=== PATIENT | female | born 1950 | race Caucasian/White ===

== ENCOUNTER 2017-01-05 11:06 | Emergency (ER) | payer OTHER, MEDICAID ==
[~2017-01-05] VITALS: Ht 167.6 cm; Wt 80.0 kg
[~2017-01-05 11:06] MED LIST: ATEN1TAB74 PO; CHOL4POW3 PO; LACT PO; ONDA4; PRIN20TA2 PO
[2017-01-05 11:09] VITALS: BP 150/74; PULSE 57; RESP 16; TEMP 98.2; O2SAT 98
--- NOTE | 2017-01-05 11:24 | PD ---
HPI Chief Complaint: GI Complaint Time Seen by Provider: 11:24 Travel History International Travel<30 days: No Contact w/Intl Traveler<30days: No Traveled to known affect area: No History of Present Illness HPI 66-year-old female presents to emergency Department with one-day history of nausea and diarrhea and belly pain. Patient has type 2 diabetes, and is legally blind. Patient states nausea, abdominal pain, and diarrhea. Patient denies upper respiratory infection symptoms, cough, or chest pain. Patient denies history of diverticulitis in the past. Patient denies vaginal symptoms or urinary symptoms. Patient did not check her blood sugar this morning. She states she did not take her diabetic medications as she did not eat this morning. She is allergic to adhesives, cranberry, Demerol, grapefruit , and iodinated contrast media. PFSH Past Medical History Hx Anticoagulant Therapy: No Arthritis: Yes (OSTEOARTHRITIS IN LEGS, FEET AND BACK) Asthma: Yes Autoimmune Disease: No Blood Disorders: No Anxiety: No Depression: No Heart Rhythm Problems: No Cancer: No Cardiovascular Problems: Yes High Cholesterol: No Chemotherapy: No Chest Pain: No Congestive Heart Failure: No COPD: No Cerebrovascular Accident: No Diabetes: Yes Diminished Hearing: No Endocrine: No Gastrointestinal Disorders: Yes (GALL BLADDER DISEASE 2004) GERD: No Glaucoma: No Genitourinary: No Headaches: No Hepatitis: No Hiatal Hernia: No Hypertension: Yes Immune Disorder: No Kidney Stones: No Musculoskeletal: Yes (OSTEOPENIA ) Neurologic: Yes Psychiatric: No Reproductive: No Respiratory: Yes Immunizations Current: Yes Migraines: No Myocardial Infarction: No Radiation Therapy: No Renal Failure: No Seizures: No Sickle Cell Disease: No Sleep Apnea: Yes Thyroid Disease: No Ulcer: No ?: Not Past Surgical History Abdominal Surgery: Yes (PARTIAL COLECTOMY) AICD: No Appendectomy: No Arteriovenous Shunt: No Cardiac Surgery: No Cholecystectomy: Yes Ear Surgery: No Endocrine Surgery: No Eye Surgery: No Genitourinary Surgery: Yes (RECTOCELE REPAIR) Gynecologic Surgery: Yes (1975 TUBAL LIGATION;04/20 HYSTERECTOMY) Hysterectomy: Yes Insulin Pump: No Joint Replacement: No Oral Surgery: No Pacemaker: No Thoracic Surgery: No Tonsillectomy: Yes Other Surgery: Yes (RECTOCELE REPAIR) Social History Alcohol Use: No Tobacco Use: No Substance Use: No Allergies-Medications (Allergen,Severity, Reaction): Coded Allergies: Adhesives (Verified Allergy, Severe, Rash, 01/05/17) Cranberry (Verified Allergy, Severe, Rash, 01/05/17) Demerol (Verified Allergy, Severe, Hives, 01/05/17) Iodinated Contrast Media (Verified Allergy, Severe, sob, 01/05/17) Grapefruit (Verified Adverse Reaction, Intermediate, Diarrhea, 01/05/17) Reported Meds & Prescriptions Reported Meds & Active Scripts Active Zofran Odt (Ondansetron Odt) 4 Mg Tab 4 Mg SL Q6HR PRN Acetaminophen Extra Strength (Acetaminophen) 500 Mg Cap 1,000 Mg PO Q6H PRN Reported Oscal 500/200 D-3 (Calcium Carbonate-Vitamin D) 500-200 Mg-Unit Tab 1 Tab PO BID Atenolol 100 Mg Tab 100 Mg PO BID Lisinopril 40 Mg Tab 40 Mg PO DAILY Glipizide 5 Mg Tab 2.5 Mg PO DAILY Take 30 minutes before a meal Naproxen 250 Mg Tab 275 Mg PO BID Lovastatin 40 Mg Tab 40 Mg PO DAILY Omeprazole 20 Mg Tab 20 Mg PO DAILY Multi Adult Gummies (Multiple Vitamins W/ Minerals) 1 Chw Chw 1 Gum PO DAILY Breo Ellipta Inh (Fluticasone/Vilanterol) 100-25 Mcg/Act Inh 1 Puff INH DAILY Use daily at the same time. Amoxicillin 500 Mg Cap 500 Mg PO BID 7 Days Review of Systems Except as stated in HPI: all other systems reviewed are Neg General / Constitutional: Positive: Chills, No: Fever Eyes: No: Visual changes HENT: No: Headaches Cardiovascular: No: Chest Pain or Discomfort Respiratory: No: Shortness of Breath Gastrointestinal: Positive: Nausea, Diarrhea, Abdominal Pain, No: Vomiting, Dysphagia, Loss of Appetite Genitourinary: No: Urgency, Frequency, Dysuria Musculoskeletal: No: Pain Skin: No Rash Neurologic: No: Weakness Psychiatric: No: Depression Endocrine: No: Polydipsia Hematologic/Lymphatic: No: Easy Bruising Physical Exam Narrative GENERAL: Patient appears in mild distress. SKIN: Warm and dry. Normal color. Normal turgor. HEAD: Atraumatic. Normocephalic. EYES: Patient has bilateral corneal clouding. No scleral icterus. No injection or drainage. ENT: No nasal bleeding or discharge. Mucous membranes pink and moist. Pharynx is clear. NECK: Trachea midline. Airway is patent. Pharynx is clear. CARDIOVASCULAR: Regular rate and rhythm. RESPIRATORY: No accessory muscle use. Clear to auscultation. Breath sounds equal bilaterally. GASTROINTESTINAL: Abdomen soft, mild generalized abdominal tenderness, nondistended. No point tenderness or guarding. Hepatic and splenic margins not palpable. No CVA tenderness MUSCULOSKELETAL: Extremities without clubbing, cyanosis, or edema. No obvious deformities. NEUROLOGICAL: Awake and alert. No obvious cranial nerve deficits. Motor grossly within normal limits. Five out of 5 muscle strength in the arms and legs. Normal speech. PSYCHIATRIC: Appropriate mood and affect; insight and judgment normal. Data Data Last Documented VS Vital Signs Date Time Temp Pulse Resp B/P Pulse Ox O2 Delivery O2 Flow Rate FiO2 01/05/17 12:39 17 01/05/17 11:37 97 01/05/17 11:09 98.2 57 150/74 Orders Complete Blood Count With Diff (01/05/17 11:27) Comprehensive Metabolic Panel (01/05/17 11:27) Lipase (01/05/17 11:27) Lactic Acid (01/05/17 11:27) Prothrombin Time / Inr (Pt) (01/05/17 11:27) Act Partial Throm Time (Ptt) (01/05/17 11:27) Urinalysis - C+S If Indicated (01/05/17 11:27) Iv Access Insert/Monitor (01/05/17 11:27) Ecg Monitoring (01/05/17 11:27) Oximetry (01/05/17 11:27) NPO (01/05/17 11:27) Ondansetron Inj (Zofran Inj) (01/05/17 11:30) Sodium Chlor 0.9% 1000 Ml Inj (Ns 1000 M (01/05/17 11:27) Sodium Chloride 0.9% Flush (Ns Flush) (01/05/17 11:30) Ketorolac Inj (Toradol Inj) (01/05/17 11:30) Oral Contrast - Adult (01/05/17 11:33) Diatrizoate Liq ( Gastrojoanne Liq) (01/05/17 11:38) Ct Abd/Pel W/O Iv Contrast (01/05/17 11:44) Cath For Specimen (01/05/17 13:28) Labs Laboratory Tests Test 01/05/17 01/05/17 01/05/17 11:45 12:30 13:40 Lactic Acid Level 0.9 mmol/L White Blood Count 7.5 TH/MM3 Red Blood Count 4.70 MIL/MM3 Hemoglobin 12.9 GM/DL Hematocrit 38.4 % Mean Corpuscular Volume 81.8 FL Mean Corpuscular Hemoglobin 27.4 PG Mean Corpuscular Hemoglobin 33.5 % Concent Red Cell Distribution Width 14.0 % Platelet Count 187 TH/MM3 Mean Platelet Volume 8.5 FL Neutrophils (%) (Auto) 57.3 % Lymphocytes (%) (Auto) 26.3 % Monocytes (%) (Auto) 8.4 % Eosinophils (%) (Auto) 6.6 % Basophils (%) (Auto) 1.4 % Neutrophils # (Auto) 4.3 TH/MM3 Lymphocytes # (Auto) 2.0 TH/MM3 Monocytes # (Auto) 0.6 TH/MM3 Eosinophils # (Auto) 0.5 TH/MM3 Basophils # (Auto) 0.1 TH/MM3 CBC Comment DIFF FINAL Differential Comment Prothrombin Time 11.7 SEC Prothromb Time International 1.1 RATIO Ratio Activated Partial 28.8 SEC Thromboplast Time Sodium Level 142 MEQ/L Potassium Level 3.8 MEQ/L Chloride Level 107 MEQ/L Carbon Dioxide Level 29.2 MEQ/L Anion Gap 6 MEQ/L Blood Urea Nitrogen 23 MG/DL Creatinine 0.88 MG/DL Estimat Glomerular Filtration 65 ML/MIN Rate Random Glucose 93 MG/DL Calcium Level 8.6 MG/DL Total Bilirubin 0.6 MG/DL Aspartate Amino Transf 18 U/L (AST/SGOT) Alanine Aminotransferase 18 U/L (ALT/SGPT) Alkaline Phosphatase 52 U/L Total Protein 5.9 GM/DL Albumin 3.6 GM/DL Lipase 138 U/L Urine Color STRAW Urine Turbidity CLEAR Urine pH 5.5 Urine Specific [place] 1.003 Urine Protein NEG mg/dL Urine Glucose (UA) NEG mg/dL Urine Ketones NEG mg/dL Urine Occult Blood NEG Urine Nitrite NEG Urine Bilirubin NEG Urine Urobilinogen LESS THAN 2.0 MG/DL Urine Leukocyte Esterase TRACE Urine WBC 1 /hpf Urine Transitional Epithelial <1 /hpf Cells Microscopic Urinalysis Comment CULT NOT INDICATED MDM Medical Decision Making Medical Screen Exam Complete: Yes Emergency Medical Condition: Yes Differential Diagnosis Nausea. Diarrhea. Abdominal pain. Gastroenteritis. Urinary tract infection. Gastroenteritis. Narrative Course Patient is medically stable at time of exam. Labs ordered including CBC, CMP, lipase, lactic acid, urinalysis. IV access is obtained patient is given 4 mg Zofran IV as well as 30 mg Toradol IV. Abdominal CT is ordered without IV or oral contrast due to the patient's allergies. CBC is unremarkable. Lactic acid is 0.9. CMP and lipase are normal. Abdominal CT is unremarkable for acute process per radiologist. Patient is discussed, reviewed, and seen by Dr. Matute. Urinalysis is negative as well. Patient was discharged home with acetaminophen 500 mg 2 every 6 hours when necessary pain. Patient also given Zofran ODT 1 tab every 6 hours when necessary nausea. Patient is to rest and push fluids and follow-up with her primary care physician as discussed. Patient can return the emergency department if worsening symptoms develop such as fever, increasing pain, or worsening diarrhea. Diagnosis Primary Impression: Gastroenteritis Additional Impressions: Acute diarrhea Abdominal pain Qualified Code: R10.84 - Generalized abdominal pain Referrals: Primary Care Physician Patient Instructions: Acute Diarrhea (ED), General Instructions Additional Instructions: Patient was discharged home with acetaminophen 500 mg 2 every 6 hours when necessary pain. Patient also given Zofran ODT 1 tab every 6 hours when necessary nausea. Patient is to rest and push fluids and follow-up with her primary care physician as discussed. Patient can return the emergency department if worsening symptoms develop such as fever, increasing pain, or worsening diarrhea. Scripts Ondansetron Odt (Zofran Odt)4 Mg Tab4 Mg SL Q6HR PRN (Nausea/Vomiting) #15 TAB Prov:Surekha Matute MD 01/05/17 Acetaminophen (Acetaminophen Extra Strength)500 Mg Cap1,000 Mg PO Q6H PRN (PAIN SCALE 4 TO 10) #60 CAP Ref 1 Prov:Surekha Matute MD 01/05/17 Disposition: DISCHARGE HOME Condition: Stable Isaac Alexander Jan 05, 2017 11:24
[2017-01-05] MEDS ORDERED: SODIUM CHLOR 0.9% 1000 ML INJ 1,000 ML IV SCH (11:27)
[2017-01-05] MEDS ORDERED: SODIUM CHLORIDE 0.9% FLUSH 10 ML FLUSH IV FLUSH PRN (11:30)
[2017-01-05] MEDS ORDERED: KETOROLAC TROMETHAMINE 30 MG/ML (IVP) VIAL IVP ONE (11:30)
[2017-01-05] MEDS ORDERED: ONDANSETRON HCL 4 MG/2 ML VIAL IVP ONE (11:30)
[2017-01-05] MEDS ORDERED: LOVA40TA PO (11:31)
[2017-01-05] MEDS ORDERED: MULT1CHW33 PO (11:31)
[2017-01-05] MEDS ORDERED: OMEP20TA PO (11:31)
[2017-01-05] MEDS ORDERED: GLIP5TAB8 PO (11:31)
[2017-01-05] MEDS ORDERED: FLUT1INH INH (11:31)
[2017-01-05] MEDS ORDERED: LISI40TA PO (11:31)
[2017-01-05] MEDS ORDERED: NAPR250T PO (11:31)
[2017-01-05] MEDS ORDERED: AMOX500C PO (11:31)
[2017-01-05] MEDS ORDERED: ATEN100T PO (11:32)
[2017-01-05] MEDS ORDERED: OSCA200T PO (11:32)
[2017-01-05 11:37] VITALS: RESP 16; O2SAT 97
[2017-01-05] MEDS ORDERED: DIATRIZOATE MEGLUM/DIATRIZOATE SOD 9 ML CUP ONE (11:38)
[2017-01-05 12:39] VITALS: RESP 17
[2017-01-05 12:56] LABS: AUTOMATED NEUTROPHIL # 4.3 TH/MM3 (1.8-7.7); BASOPHIL # 0.1 TH/MM3 (0-0.2); BASOPHIL % 1.4 % (0.0-2.0); EOSINOPHIL # 0.5 TH/MM3 (0-0.4); EOSINOPHIL % 6.6 % (0.0-4.0); HEMATOCRIT 38.4 % (35.0-46.0); HEMO FLAGS DIFF FINAL; LYMPH % 26.3 % (9.0-44.0); MEAN CELL VOLUME 81.8 FL (80.0-100.0); MEAN CORPUSCULAR HEMOGLOBIN 27.4 PG (27.0-34.0); MEAN CORPUSCULAR HGB CONC 33.5 % (32.0-36.0); MONO % 8.4 % (0.0-8.0); NEUT % 57.3 % (16.0-70.0); PLATELET COUNT 187 TH/MM3 (150-450); WHITE BLOOD COUNT 7.5 TH/MM3 (4.0-11.0)
--- NOTE | 2017-01-05 12:57 | RADRPT ---
EXAM DATE/TIME: 01/05/2017 12:02 [facility] COMPARISON: CT ABDOMEN & PELVIS W/O CONTRAST, April 28, 2016, 0:07. INDICATIONS : Diffuse abdominal pain, nausea and vomiting. ORAL CONTRAST: No oral contrast ingested. RADIATION DOSE: 13.61 CTDIvol (mGy) MEDICAL HISTORY : Hypertension. Diabetes mellitus type 2. SURGICAL HISTORY : Hysterectomy. ENCOUNTER: Initial ACUITY: 1 day PAIN SCALE: 4/10 LOCATION: abdomen. TECHNIQUE: Volumetric scanning of the abdomen and pelvis was performed. Using automated exposure control and ad justment of the mA and/or kV according to patient size, radiation dose was kept as low as reasonably achievable to obtain optimal diagnostic quality images. FINDINGS: The limited portion of the lung base visualized is clear. The examination demonstrates a 1.1 cm low-attenuation lesion in the right lobe of the liver this is u nchanged from previous dated 04/28/16. The spleen, pancreas, adrenal glands and right kidney are unremarkable in appearance. There is some s ubtle inflammatory change around the left renal pelvis. The patient's renal stent has been removed. T here is no hydronephrosis. There is no free intraperitoneal air. No free intraperitoneal fluid is present. There is no retroperi toneal lymphadenopathy. The visualized loops of small large bowel are normal in caliber. There is no free fluid within the pelvis. No iliac or inguinal adenopathy is present. There is a surg ical anastomosis in the distal sigmoid colon. The contours of the bladder are unremarkable. The visualized bony structures demonstrate mild degenerative changes but are otherwise intact. CONCLUSION: 1. Stable 1.1 cm low-attenuation lesion in the liver probably representing a cyst. 2. Interval removal of the patient's left ureteral stent. 3. No definite abnormality to explain the patient's abdominal pain and vomiting are identified. Steve Reyes MD on January 05, 2017 at 12:52 Board Certified Radiologist. This report was verified electronically.
[2017-01-05 13:04] LABS: APTT (PATIENT) 28.8 SEC (24.3-30.1); INTERNATIONAL NORMALIZED RATIO 1.1 RATIO; PROTHROMBIN TIME - PATIENT 11.7 SEC (9.8-11.6)
[2017-01-05 13:16] LABS: ALT (GPT) 18 U/L (10-53); ANION GAP 6 MEQ/L (5-15); AST (GOT) 18 U/L (15-37); BICARBONATE 29.2 MEQ/L (21.0-32.0); BLOOD UREA NITROGEN 23 MG/DL (7-18); CHLORIDE 107 MEQ/L (98-107); GLOMERULAR FILTRATION RATE 65 ML/MIN (>89); POTASSIUM 3.8 MEQ/L (3.5-5.1); SODIUM (NA) 142 MEQ/L (136-145)
[2017-01-05 13:19] LABS: ALKALINE PHOSPHATASE 52 U/L (45-117); TOTAL BILIRUBIN ADULT 0.6 MG/DL (0.2-1.0)
[2017-01-05] MEDS ORDERED: ZOFR4TAB3 SL (13:40)
[2017-01-05] MEDS ORDERED: EXTR500C PO (13:40)
[2017-01-05 14:06] LABS: BLOOD, URINE NEG (NEG); COMMENT (UR) CULT NOT INDICATED; CULTURE IF INDICATED CULT NOT INDICATED; GLUCOSE,URINE NEG (NEG); KETONE, URINE NEG (NEG); NITRITE,URINE NEG (NEG); PH, URINE 5.5 (5.0-8.5); TRANSITIONAL EPI CELLS, URINE <1 /hpf; URINE COLOR STRAW (YELLW/STRAW)
--- NOTE | 2017-01-05 14:16 | PD ---
Data Data Last Documented VS Vital Signs Date Time Temp Pulse Resp B/P Pulse Ox O2 Delivery O2 Flow Rate FiO2 01/05/17 12:39 17 01/05/17 11:37 97 01/05/17 11:09 98.2 57 150/74 Orders Complete Blood Count With Diff (01/05/17 11:27) Comprehensive Metabolic Panel (01/05/17 11:27) Lipase (01/05/17 11:27) Lactic Acid (01/05/17 11:27) Prothrombin Time / Inr (Pt) (01/05/17 11:27) Act Partial Throm Time (Ptt) (01/05/17 11:27) Urinalysis - C+S If Indicated (01/05/17 11:27) Iv Access Insert/Monitor (01/05/17 11:27) Ecg Monitoring (01/05/17 11:27) Oximetry (01/05/17 11:27) NPO (01/05/17 11:27) Ondansetron Inj (Zofran Inj) (01/05/17 11:30) Sodium Chlor 0.9% 1000 Ml Inj (Ns 1000 M (01/05/17 11:27) Sodium Chloride 0.9% Flush (Ns Flush) (01/05/17 11:30) Ketorolac Inj (Toradol Inj) (01/05/17 11:30) Oral Contrast - Adult (01/05/17 11:33) Diatrizoate Liq ( Gastrojoanne Liq) (01/05/17 11:38) Ct Abd/Pel W/O Iv Contrast (01/05/17 11:44) Cath For Specimen (01/05/17 13:28) Labs Laboratory Tests Test 01/05/17 01/05/17 01/05/17 11:45 12:30 13:40 Lactic Acid Level 0.9 mmol/L White Blood Count 7.5 TH/MM3 Red Blood Count 4.70 MIL/MM3 Hemoglobin 12.9 GM/DL Hematocrit 38.4 % Mean Corpuscular Volume 81.8 FL Mean Corpuscular Hemoglobin 27.4 PG Mean Corpuscular Hemoglobin 33.5 % Concent Red Cell Distribution Width 14.0 % Platelet Count 187 TH/MM3 Mean Platelet Volume 8.5 FL Neutrophils (%) (Auto) 57.3 % Lymphocytes (%) (Auto) 26.3 % Monocytes (%) (Auto) 8.4 % Eosinophils (%) (Auto) 6.6 % Basophils (%) (Auto) 1.4 % Neutrophils # (Auto) 4.3 TH/MM3 Lymphocytes # (Auto) 2.0 TH/MM3 Monocytes # (Auto) 0.6 TH/MM3 Eosinophils # (Auto) 0.5 TH/MM3 Basophils # (Auto) 0.1 TH/MM3 CBC Comment DIFF FINAL Differential Comment Prothrombin Time 11.7 SEC Prothromb Time International 1.1 RATIO Ratio Activated Partial 28.8 SEC Thromboplast Time Sodium Level 142 MEQ/L Potassium Level 3.8 MEQ/L Chloride Level 107 MEQ/L Carbon Dioxide Level 29.2 MEQ/L Anion Gap 6 MEQ/L Blood Urea Nitrogen 23 MG/DL Creatinine 0.88 MG/DL Estimat Glomerular Filtration 65 ML/MIN Rate Random Glucose 93 MG/DL Calcium Level 8.6 MG/DL Total Bilirubin 0.6 MG/DL Aspartate Amino Transf 18 U/L (AST/SGOT) Alanine Aminotransferase 18 U/L (ALT/SGPT) Alkaline Phosphatase 52 U/L Total Protein 5.9 GM/DL Albumin 3.6 GM/DL Lipase 138 U/L Urine Color STRAW Urine Turbidity CLEAR Urine pH 5.5 Urine Specific [place] 1.003 Urine Protein NEG mg/dL Urine Glucose (UA) NEG mg/dL Urine Ketones NEG mg/dL Urine Occult Blood NEG Urine Nitrite NEG Urine Bilirubin NEG Urine Urobilinogen LESS THAN 2.0 MG/DL Urine Leukocyte Esterase TRACE Urine WBC 1 /hpf Urine Transitional Epithelial <1 /hpf Cells Microscopic Urinalysis Comment CULT NOT INDICATED MDM Supervised Visit with CHRISTIANO: Yes Narrative Course The history, exam, and medical decision-making in the associated midlevel provider note were completed with my assistance. I reviewed and agree with the findings presented. I attest that I had a [id number] encounter with the patient on the same day, and personally performed and documented my assessment and findings in the medical record. *My assessment and Findings: This is a 66-year-old female who presents to the emergency department with abdominal discomfort, loose stools and malaise. She is placed on a monitor and an IV was established. Labs were obtained which were all reassuring. CT abdomen and pelvis is unremarkable. Urinalysis is negative for infection. She says she feels better and wants to eat. Patient will be discharged home. Diagnosis Primary Impression: Gastroenteritis Additional Impressions: Acute diarrhea Abdominal pain Qualified Code: R10.84 - Generalized abdominal pain Referrals: Primary Care Physician Patient Instructions: General Instructions, Acute Diarrhea (ED) Additional Instruction: Patient was discharged home with acetaminophen 500 mg 2 every 6 hours when necessary pain. Patient also given Zofran ODT 1 tab every 6 hours when necessary nausea. Patient is to rest and push fluids and follow-up with her primary care physician as discussed. Patient can return the emergency department if worsening symptoms develop such as fever, increasing pain, or worsening diarrhea. Scripts Ondansetron Odt (Zofran Odt)4 Mg Tab4 Mg SL Q6HR PRN (Nausea/Vomiting) #15 TAB Prov:Surekha Matute MD 01/05/17 Acetaminophen (Acetaminophen Extra Strength)500 Mg Cap1,000 Mg PO Q6H PRN (PAIN SCALE 4 TO 10) #60 CAP Ref 1 Prov:Surekha Matute MD 01/05/17 Disposition: 01 DISCHARGE HOME Condition: Stable Surekha Matute MD Jan 05, 2017 14:16
[2017-01-05 14:41] VITALS: BP 130/77; TEMP 97.8
== END 2017-01-05 14:41 | disposition home or self-care (01) ==
LOC: NEPC 11:06
DX: K52.9 Noninfective gastroenteritis and colitis, unspecified (principal); R19.7 Diarrhea, unspecified; I10 Essential (primary) hypertension; E11.9 Type 2 diabetes mellitus without complications; Z79.4 Long term (current) use of insulin
CPT/HCPCS: 74176; 80053; 81001; 83605; 83690; 85025; 85610; 85730; 96361; 96374; 96375; 99284; J1885; J2405; J7030; P9612; Q9963

== ENCOUNTER 2017-05-09 20:13 | Emergency (ER) | payer MEDICAID, OTHER ==
[~2017-05-09 20:13] MED LIST changes: +AMOX500C PO; +ATEN100T PO; -ATEN1TAB74 PO; -CHOL4POW3 PO; +EXTR500C PO; +FLUT1INH INH; +GLIP5TAB8 PO; -LACT PO; +LISI40TA PO; +LOVA40TA PO; +MULT1CHW33 PO; +NAPR250T PO; +OMEP20TA PO; -ONDA4; +OSCA200T PO; -PRIN20TA2 PO; +ZOFR4TAB3 SL
[2017-05-09] MEDS ORDERED: SODIUM CHLOR 0.9% 1000 ML INJ 1,000 ML IV SCH (20:25)
--- NOTE | 2017-05-09 20:29 | PD ---
HPI Chief Complaint: abdominal pain Time Seen by Provider: 20:20 Travel History International Travel<30 days: No Contact w/Intl Traveler<30days: No Traveled to known affect area: No History of Present Illness HPI 67-year-old female presents EMS for evaluation of abdominal pain, nausea, vomiting, diarrhea. Symptoms started this evening at 6 PM. She reports 3 episodes of diarrhea, 3 episodes of vomiting. The pain is a sharp pain in the lower quadrants of the abdomen which is constant. Per chart review she has a history of cholecystectomy, partial colectomy, hysterectomy. She reports that her is having similar but less severe symptoms. Denies any recent dietary changes, recent travel, recent antibiotic use, dysuria, flank pain, fevers or chills. No other complaints. PFSH Past Medical History Hx Anticoagulant Therapy: No Arthritis: Yes (OSTEOARTHRITIS IN LEGS, FEET AND BACK) Asthma: Yes Autoimmune Disease: No Blood Disorders: No Anxiety: No Depression: No Heart Rhythm Problems: No Cancer: No Cardiovascular Problems: Yes High Cholesterol: No Chemotherapy: No Chest Pain: No Congestive Heart Failure: No COPD: No Cerebrovascular Accident: No Diabetes: Yes Diminished Hearing: No Endocrine: No Gastrointestinal Disorders: Yes (GALL BLADDER DISEASE 2004) GERD: No Glaucoma: No Genitourinary: No Headaches: No Hepatitis: No Hiatal Hernia: No Hypertension: Yes Immune Disorder: No Kidney Stones: No Musculoskeletal: Yes (OSTEOPENIA ) Neurologic: Yes Psychiatric: No Reproductive: No Respiratory: Yes Immunizations Current: Yes Migraines: No Myocardial Infarction: No Radiation Therapy: No Renal Failure: No Seizures: No Sickle Cell Disease: No Sleep Apnea: Yes Thyroid Disease: No Ulcer: No Past Surgical History Abdominal Surgery: Yes (PARTIAL COLECTOMY) AICD: No Appendectomy: No Arteriovenous Shunt: No Cardiac Surgery: No Cholecystectomy: Yes Ear Surgery: No Endocrine Surgery: No Eye Surgery: No Genitourinary Surgery: Yes (RECTOCELE REPAIR) Gynecologic Surgery: Yes (1975 TUBAL LIGATION;04/20 HYSTERECTOMY) Hysterectomy: Yes Insulin Pump: No Joint Replacement: No Oral Surgery: No Pacemaker: No Thoracic Surgery: No Tonsillectomy: Yes Other Surgery: Yes (RECTOCELE REPAIR) Social History Alcohol Use: No Tobacco Use: No Substance Use: No Allergies-Medications (Allergen,Severity, Reaction): Coded Allergies: Adhesives (Verified Allergy, Severe, Rash, 05/09/17) Cranberry (Verified Allergy, Severe, Rash, 05/09/17) Demerol (Verified Allergy, Severe, Hives, 05/09/17) Iodinated Contrast Media (Verified Allergy, Severe, sob, 05/09/17) Grapefruit (Verified Adverse Reaction, Intermediate, Diarrhea, 05/09/17) Reported Meds & Prescriptions Reported Meds & Active Scripts Active Zofran Odt (Ondansetron Odt) 4 Mg Tab 4 Mg SL Q6HR PRN Reported Hydrochlorothiazide 25 Mg Tab 25 Mg PO DAILY Amlodipine (Amlodipine Besylate) 2.5 Mg Tab 2.5 Mg PO DAILY Ibuprofen 600 Mg Tab 600 Mg PO DAILY PRN Oscal 500/200 D-3 (Calcium Carbonate-Vitamin D) 500-200 Mg-Unit Tab 1 Tab PO BID Atenolol 100 Mg Tab 100 Mg PO BID Lisinopril 40 Mg Tab 40 Mg PO DAILY Glipizide 5 Mg Tab 2.5 Mg PO DAILY Take 30 minutes before a meal Omeprazole 20 Mg Tab 20 Mg PO DAILY Multi Adult Gummies (Multiple Vitamins W/ Minerals) 1 Chw Chw 1 Gum PO DAILY Breo Ellipta Inh (Fluticasone/Vilanterol) 100-25 Mcg/Act Inh 1 Puff INH DAILY Use daily at the same time. Review of Systems Except as stated in HPI: all other systems reviewed are Neg Physical Exam Narrative GENERAL: Well developed well-nourished female in no acute distress SKIN: Warm and dry. HEAD: Atraumatic. Normocephalic. EYES: No scleral icterus. No injection or drainage. ENT: No nasal bleeding or discharge. Mucous membranes pink and moist. NECK: Trachea midline. No JVD. CARDIOVASCULAR: Regular rate and rhythm. No murmur appreciated. RESPIRATORY: No accessory muscle use. Clear to auscultation. Breath sounds equal bilaterally. GASTROINTESTINAL: Abdomen soft, tender to palpation lower quadrants of the abdomen, left wrist and right. No guarding or distention. MUSCULOSKELETAL: No obvious deformities. No clubbing. No cyanosis. No edema. NEUROLOGICAL: Awake and alert. No obvious cranial nerve deficits. Motor grossly within normal limits. Normal speech. PSYCHIATRIC: Appropriate mood and affect; insight and judgment normal. Data Data Last Documented VS Vital Signs Date Time Temp Pulse Resp B/P Pulse Ox O2 Delivery O2 Flow Rate FiO2 05/09/17 20:38 99 Room Air 05/09/17 20:35 99.2 61 16 160/77 Orders Complete Blood Count With Diff (05/09/17 20:25) Comprehensive Metabolic Panel (05/09/17 20:25) Lipase (05/09/17 20:25) Urinalysis - C+S If Indicated (05/09/17 20:25) Ct Abd/Pel W/O Iv Contrast (05/09/17 20:25) Iv Access Insert/Monitor (05/09/17 20:25) Ecg Monitoring (05/09/17 20:25) Oximetry (05/09/17 20:25) Ondansetron Inj (Zofran Inj) (05/09/17 20:30) Sodium Chlor 0.9% 1000 Ml Inj (Ns 1000 M (05/09/17 20:25) Sodium Chloride 0.9% Flush (Ns Flush) (05/09/17 20:30) Labs Laboratory Tests Test 05/09/17 05/09/17 21:10 22:00 White Blood Count 7.8 TH/MM3 Red Blood Count 4.85 MIL/MM3 Hemoglobin 13.8 GM/DL Hematocrit 41.0 % Mean Corpuscular Volume 84.5 FL Mean Corpuscular Hemoglobin 28.5 PG Mean Corpuscular Hemoglobin 33.7 % Concent Red Cell Distribution Width 13.8 % Platelet Count 206 TH/MM3 Mean Platelet Volume 8.5 FL Neutrophils (%) (Auto) 54.7 % Lymphocytes (%) (Auto) 31.6 % Monocytes (%) (Auto) 9.4 % Eosinophils (%) (Auto) 3.6 % Basophils (%) (Auto) 0.7 % Neutrophils # (Auto) 4.3 TH/MM3 Lymphocytes # (Auto) 2.5 TH/MM3 Monocytes # (Auto) 0.7 TH/MM3 Eosinophils # (Auto) 0.3 TH/MM3 Basophils # (Auto) 0.1 TH/MM3 CBC Comment DIFF FINAL Differential Comment Sodium Level 138 MEQ/L Potassium Level 4.1 MEQ/L Chloride Level 107 MEQ/L Carbon Dioxide Level 26.2 MEQ/L Anion Gap 5 MEQ/L Blood Urea Nitrogen 35 MG/DL Creatinine 1.24 MG/DL Estimat Glomerular Filtration 43 ML/MIN Rate Random Glucose 113 MG/DL Calcium Level 9.2 MG/DL Total Bilirubin 0.6 MG/DL Aspartate Amino Transf 30 U/L (AST/SGOT) Alanine Aminotransferase 25 U/L (ALT/SGPT) Alkaline Phosphatase 59 U/L Total Protein 6.2 GM/DL Albumin 3.9 GM/DL Lipase 224 U/L Urine Color YELLOW Urine Turbidity CLEAR Urine pH 5.0 Urine Specific Elizabeth 1.016 Urine Protein NEG mg/dL Urine Glucose (UA) NEG mg/dL Urine Ketones NEG mg/dL Urine Occult Blood NEG Urine Nitrite NEG Urine Bilirubin NEG Urine Urobilinogen LESS THAN 2.0 MG/DL Urine Leukocyte Esterase SMALL Urine RBC LESS THAN 1 /hpf Urine WBC 4 /hpf Urine Squamous Epithelial <1 /hpf Cells Urine Bacteria RARE /hpf Urine Hyaline Casts 8 /lpf Urine Mucus FEW /lpf Microscopic Urinalysis Comment CULT NOT INDICATED MDM Medical Decision Making Medical Screen Exam Complete: Yes Emergency Medical Condition: Yes Medical Record Reviewed: Yes Differential Diagnosis Gastroenteritis, obstruction, diverticulitis, colitis, appendicitis Narrative Course 67-year-old female presents with 2.5 hours of lower abdominal pain, nausea, vomiting, diarrhea. Plan is for CT of the abdomen and pelvis, basic lab work, urinalysis. She will be given IV fluids and antiemetics. Laboratory and imaging studies been reviewed. CT abdomen and pelvis reveals no acute abnormality. CBC is unremarkable. CMP reveals a BUN of 35 and a creatinine 1.24. Urinalysis reveals small leukocyte esterase, otherwise unremarkable. Upon examination she feels significantly improved. I suspect given the history that she and her have both had nausea and vomiting and diarrhea that this is likely a viral gastroenteritis. She'll be discharged with a short course of Zofran. Diagnosis Primary Impression: Gastroenteritis Additional Instructions: Zofran as needed for nausea. Advance diet as tolerated. Follow-up with primary care physician and return for any emergent medical conditions. Med/Other Pt SpecificInfo: Prescription(s) given Scripts Ondansetron Odt (Zofran Odt)4 Mg Tab4 Mg SL Q6HR PRN (Nausea/Vomiting) #20 TAB Ref 0 Prov:Clemencia Espinal MD 05/09/17 Disposition: 01 DISCHARGE HOME Condition: Stable Chandler Matthews May 09, 2017 20:29
[2017-05-09] MEDS ORDERED: SODIUM CHLORIDE 0.9% FLUSH 10 ML FLUSH IV FLUSH PRN (20:30)
[2017-05-09] MEDS ORDERED: ONDANSETRON HCL 4 MG/2 ML VIAL IVP ONE (20:30)
[2017-05-09 20:35] VITALS: BP 160/77; PULSE 61; RESP 16; TEMP 99.2; O2SAT 99
[2017-05-09 20:38] VITALS: O2SAT 99
--- NOTE | 2017-05-09 21:16 | RADRPT ---
EXAM DATE/TIME: 05/09/2017 20:45 [facility] COMPARISON: CT ABDOMEN & PELVIS W/O CONTRAST, January 05, 2017, 12:02. INDICATIONS : Bilateral lower qaudrant pain with vomiting and diarrhea. ORAL CONTRAST: No oral contrast ingested. RADIATION DOSE: 13.61 CTDIvol (mGy) MEDICAL HISTORY : Hypertension. Diabetes mellitus type 2. SURGICAL HISTORY : Cholecystectomy. Hysterectomy.Colon resection. ENCOUNTER: Initial ACUITY: 1 day PAIN SCALE: 5/10 LOCATION: Bilateral lower abdomen TECHNIQUE: Volumetric scanning of the abdomen and pelvis was performed. Using automated exposure control and ad justment of the mA and/or kV according to patient size, radiation dose was kept as low as reasonably achievable to obtain optimal diagnostic quality images. DICOM format image data is available electro nically for review and comparison. FINDINGS: LOWER LUNGS: The visualized lower lungs are clear. LIVER: Homogeneous density without lesion. There is no dilation of the biliary tree. No calcified gallston es. Low-density the liver are stable. SPLEEN: Normal size without lesion. PANCREAS: Within normal limits. KIDNEYS: Normal in size and shape. There is no mass, stone, or hydronephrosis. Slight inflammation left kidne y uncertain etiology. ADRENAL GLANDS: Within normal limits. VASCULAR: There is no aortic aneurysm. BOWEL/MESENTERY: The stomach, small bowel, and colon demonstrate no acute abnormality. There is no free intraperitone al air or fluid. Anastomotic sutures in the rectum. ABDOMINAL WALL: Within normal limits. RETROPERITONEUM: There is no lymphadenopathy. BLADDER: No wall thickening or mass. REPRODUCTIVE: Within normal limits. INGUINAL: There is no lymphadenopathy or hernia. MUSCULOSKELETAL: Within normal limits for patient age. CONCLUSION: 1. No acute inflammatory process. 2. Stable hepatic low densities. 3. Slight inflammation left renal pelvis of uncertain etiology Wild Leonard MD on May 09, 2017 at 20:57 Board Certified Radiologist. This report was verified electronically.
[2017-05-09 21:24] LABS: AUTOMATED NEUTROPHIL # 4.3 TH/MM3 (1.8-7.7); BASOPHIL # 0.1 TH/MM3 (0-0.2); BASOPHIL % 0.7 % (0.0-2.0); EOSINOPHIL # 0.3 TH/MM3 (0-0.4); EOSINOPHIL % 3.6 % (0.0-4.0); HEMO FLAGS DIFF FINAL; LYMPH % 31.6 % (9.0-44.0); LYMPHOCYTE # 2.5 TH/MM3 (1.0-4.8); MEAN CELL VOLUME 84.5 FL (80.0-100.0); MEAN CORPUSCULAR HEMOGLOBIN 28.5 PG (27.0-34.0); MEAN CORPUSCULAR HGB CONC 33.7 % (32.0-36.0); MONO % 9.4 % (0.0-8.0); NEUT % 54.7 % (16.0-70.0); PLATELET COUNT 206 TH/MM3 (150-450); RED BLOOD COUNT 4.85 MIL/MM3 (4.00-5.30); RED CELL DISTRIBUTION WIDTH 13.8 % (11.6-17.2); WHITE BLOOD COUNT 7.8 TH/MM3 (4.0-11.0)
[2017-05-09] MEDS ORDERED: AMLO2.5T PO (21:33)
[2017-05-09] MEDS ORDERED: IBUP-232 PO (21:33)
[2017-05-09] MEDS ORDERED: HYDR25TA5 PO (21:33)
[2017-05-09 21:48] LABS: ALT (GPT) 25 U/L (10-53)
[2017-05-09 21:49] LABS: ANION GAP 5 MEQ/L (5-15); AST (GOT) 30 U/L (15-37); BICARBONATE 26.2 MEQ/L (21.0-32.0); BLOOD UREA NITROGEN 35 MG/DL (7-18); CHLORIDE 107 MEQ/L (98-107); GLOMERULAR FILTRATION RATE 43 ML/MIN (>89); POTASSIUM 4.1 MEQ/L (3.5-5.1); SODIUM (NA) 138 MEQ/L (136-145)
[2017-05-09 21:50] LABS: ALKALINE PHOSPHATASE 59 U/L (45-117); TOTAL BILIRUBIN ADULT 0.6 MG/DL (0.2-1.0)
[2017-05-09 22:28] LABS: BACTERIA, URINE RARE /hpf; BLOOD, URINE NEG (NEG); COMMENT (UR) CULT NOT INDICATED; CULTURE IF INDICATED CULT NOT INDICATED; GLUCOSE,URINE NEG (NEG); HYALINE CAST, URINE 8 /lpf (RARE); KETONE, URINE NEG (NEG); MUCUS URINE FEW /lpf (OCC); NITRITE,URINE NEG (NEG); SQUAMOUS EPITHELIAL CELL URINE <1 /hpf (0-5); URINE COLOR YELLOW (YELLW/STRAW)
[2017-05-09] MEDS ORDERED: ZOFR4TAB3 SL (22:29)
== END 2017-05-09 22:58 | disposition home or self-care (01) ==
LOC: NEPC 20:13
DX: K52.9 Noninfective gastroenteritis and colitis, unspecified (principal); I10 Essential (primary) hypertension; J45.909 Unspecified asthma, uncomplicated; E11.9 Type 2 diabetes mellitus without complications; M86.8X9 Other osteomyelitis, unspecified sites; K82.9 Disease of gallbladder, unspecified; M19.079 Primary osteoarthritis, unspecified ankle and foot; M47.9 Spondylosis, unspecified; Z79.899 Other long term (current) drug therapy
CPT/HCPCS: 74176; 80053; 81001; 83690; 85025; 96361; 96374; 99284; J2405; J7030